=== PATIENT | male | born 1965 | race Caucasian/White ===

== ENCOUNTER 2020-06-06 09:57 | Emergency (ER) | payer OTHER ==
[~2020-06-06] VITALS: Ht 177.8 cm; Wt 83.9 kg
[2020-06-06] MEDS ORDERED: TOPROL XL25 MG PO (10:10)
[2020-06-06] MEDS ORDERED: LISINOPRIL5 MG PO (10:10)
[2020-06-06] MEDS ORDERED: FUROSEMIDE 40 M40 M1 PO (10:10)
[2020-06-06 10:24] LABS: ABSOLUTE EOSINOPHILS 0.2 thou/uL (0.0-0.7); ABSOLUTE LYMPHOCYTES 1.8 thou/uL (0.8-5.3); ABSOLUTE MONOCYTES 0.6 thou/uL (0.0-1.2); BASOPHILS 0.8 %; EOSINOPHILS 4.1 %; HEMOGLOBIN 16.8 gm/dL (14.0-18.0); LYMPHOCYTES 31.7 %; MCH 30.5 pg (26.0-34.0); MCHC 34.2 g/dL (28.0-37.0); MONOCYTES 10.7 %; MPV 8.7 fl. (7.2-11.1); NUCLEATED RBCS 0 /100WBC; PLATELET COUNT* 184 thou/uL (150-400); POLYS 52.7 %; RDW-CV 13.5 % (10.5-14.5); WBC 5.8 thou/uL (4.0-11.0)
[2020-06-06 10:30] LABS: ANION GAP 4 mmol/L (7-16); BUN 23 mg/dL (7-18); CALCIUM 8.9 mg/dL (8.5-10.1); CHLORIDE 104 mmol/L (98-107); CO2 29 mmol/L (21-32); CREATININE 1.3 mg/dL (0.6-1.3); GLUCOSE 88 mg/dL (70-99); POTASSIUM 4.2 mmol/L (3.5-5.1); SODIUM 137 mmol/L (136-145)
[2020-06-06 10:35] LABS: APTT 25.7 Seconds (25.0-31.3)
[2020-06-06 10:45] LABS: ALBUMIN 3.7 g/dL (3.4-5.0); ALKALINE PHOSPHATASE 54 U/L (46-116); CK-MB MASS < 0.5 ng/mL (<0.5-3.6); LIPASE 176 U/L (73-393); MAGNESIUM 2.4 mg/dL (1.8-2.4); NT-PRO BRAIN NAT PEPTIDE 561 pg/mL (<300); SGOT 56 U/L (15-37); SGPT 90 U/L (30-65)
[2020-06-06] MEDS ORDERED: PREDNISONE 20 M20 M1 PO (12:47)
[2020-06-06] MEDS ORDERED: ZESTRIL5 MG PO (12:47)
[2020-06-06] MEDS ORDERED: VENTOLIN HFA 1818 GM INH (12:47)
[2020-06-06 14:10] VITALS: BP 135/89
--- NOTE | 2020-06-06 16:16 | EKG ---
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[facility] : 1965 Requested By: Jerome Ng Order Number: [id number] MD: Catalino Patel Measurements Intervals [place] Rate: 69 P: 57 IN: 170 QRS: 25 QRSD: 103 T: 156 QT: 454 QTc: 487 Interpretive Statements Sinus rhythm LAE, consider biatrial enlargement Left ventricular hypertrophy Abnrm T, consider ischemia, anterolateral lds Baseline wander in lead(s) V3 Compared to ECG 02/20/2010 21:26:09 Left ventricular hypertrophy now present Possible ischemia now present Prolonged QT interval no longer present Electronically Signed On 06-06-2020 16:16:[address] COMMISSIONER by Catalino Patel [email or web address] <ELECTRONICALLY SIGNED> By: Catalino Patel MD, [facility] 06/06/20 1616 1032 Catalino Patel MD, [facility] /EPI
== END 2020-06-06 14:10 | disposition home or self-care (01) ==
LOC: M.ERS 09:57
PROVIDERS: Family Medicine
DX: R06.00 Dyspnea, unspecified (principal); R07.9 Chest pain, unspecified; Z20.828 Contact with and (suspected) exposure to other viral communicable diseases; Z79.899 Other long term (current) drug therapy

== ENCOUNTER 2020-08-01 01:53 | Observation (INO) | payer OTHER ==
[2020-08-01] VITALS (8 sets, daily range): BP systolic 110–188; BP diastolic 63–107
[~2020-08-01] VITALS: Ht 177.8 cm; Wt 69.0 kg
[~2020-08-01 01:53] MED LIST: FUROSEMIDE 40 M40 M1 PO; LISINOPRIL5 MG PO; PREDNISONE 20 M20 M1 PO; TOPROL XL25 MG PO; VENTOLIN HFA 1818 GM INH; ZESTRIL5 MG PO
[2020-08-01 02:16] LABS: ABSOLUTE EOSINOPHILS 0.2 thou/uL (0.0-0.7); ABSOLUTE LYMPHOCYTES 1.9 thou/uL (0.8-5.3); ABSOLUTE MONOCYTES 0.6 thou/uL (0.0-1.2); ABSOLUTE NEUTROPHILS 3.2 thou/uL (1.6-8.1); BASOPHILS 0.7 %; EOSINOPHILS 2.8 %; HEMATOCRIT 41.4 % (42.0-52.0); HEMOGLOBIN 14.2 gm/dL (14.0-18.0); LYMPHOCYTES 32.7 %; MCHC 34.3 g/dL (28.0-37.0); MCV 90.4 fL (80.0-100.0); MONOCYTES 10.1 %; NUCLEATED RBCS 0 /100WBC; PLATELET COUNT* 153 thou/uL (150-400); POLYS 53.7 %; RBC 4.58 mil/uL (4.50-6.00); RDW-CV 13.8 % (10.5-14.5); WBC 5.9 thou/uL (4.0-11.0)
[2020-08-01 02:23] LABS: INR 1.1; PROTIME 11.4 Seconds (9.20-11.50)
[2020-08-01 02:27] LABS: CALCIUM 8.9 mg/dL (8.5-10.1); CREATININE 1.6 mg/dL (0.6-1.3); POTASSIUM 3.9 mmol/L (3.5-5.1)
[2020-08-01 02:41] LABS: MAGNESIUM 2.3 mg/dL (1.8-2.4); TOTAL BILIRUBIN 0.7 mg/dL (<0.1-1.0); TOTAL PROTEIN 7.7 g/dL (6.4-8.2)
[2020-08-01 02:50] LABS: URINE BILIRUBIN NEGATIVE (Negative); URINE BLOOD NEGATIVE (Negative); URINE CLARITY CLEAR; URINE COLOR YELLOW; URINE GLUCOSE-RANDOM NEGATIVE (Negative); URINE KETONES NEGATIVE (Negative); URINE LEUKOCYTES-REFLEX NEGATIVE (Negative); URINE NITRITE-REFLEX NEGATIVE (Negative); URINE PROTEIN 1+ (Negative)
[2020-08-01 02:58] LABS: AMP/METHAMP Negative (Negative); BARBITURATES Negative (Negative); BENZODIAZEPINES Negative (Negative); COCAINE Negative (Negative); METHADONE Negative (Negative); OPIATES Negative (Negative); PCP Negative (Negative); THC Negative (Negative)
[2020-08-01] MEDS ORDERED: LASIX 40 MG TAB40 M2 PO (08:37)
--- NOTE | 2020-08-01 11:08 | EKG ---
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 : 1965 Requested By: Erika Alvarenga Order Number: [id number] MD: Catalino Patel Measurements Intervals [place] Rate: 59 P: 64 MT: 190 QRS: 15 QRSD: 119 T: 66 QT: 454 QTc: 450 Interpretive Statements Sinus rhythm Probable LVH with secondary repol abnrm Compared to ECG 06/06/2020 10:32:58 Possible ischemia no longer present Electronically Signed On 08-01-2020 11:08:15 QA SPECIALIST by Catalino Patel [email or web address] <ELECTRONICALLY SIGNED> By: Catalino Patel MD, FAC 08/01/20 1108 0156 0156 Catalino Patel MD, [facility] /EPI
--- NOTE | 2020-08-01 11:09 | EKG ---
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 : 1965 Requested By: rEika Alvarenga Order Number: [id number] MD: Catalino Patel Measurements Intervals [place] Rate: 57 P: 57 [place]: 169 QRS: 20 QRSD: 116 T: 59 QT: 531 QTc: 517 Interpretive Statements Sinus rhythm Nonspecific intraventricular conduction delay Minimal ST depression, anterolateral leads Compared to ECG 08/01/2020 01:56:48 no change Electronically Signed On 08-01-2020 11:09:08 [employer] by Catalino Patel [email or web address] <ELECTRONICALLY SIGNED> By: Catalino Patel MD, [facility] 08/01/20 1109 0315 0315 Catalino Patel MD, [facility] /EPI
[2020-08-01 16:03] LABS: CHOLESTEROL 136 mg/dL (<200); HDL CHOLESTEROL 36 mg/dL (>40); LDL CHOLESTEROL 94 mg/dL (<100); SERUM ASSESSMENT CLEAR; TC:HDL 3.8 Ratio (Not establshd); TRIGLYCERIDE 33 mg/dL (<150); VLDL 7 mg/dL (<40)
[2020-08-01] MEDS ORDERED: SPIRONOLACTONE25 MG PO (16:45)
--- NOTE | 2020-08-01 16:52 | CARDNUC ---
[place] [address] CARDIAC NUCLEAR IMAGING REPORT Name: ERLINDA RAMIREZ Yordy Room: [address]R.#: [id number] Admission: 08/01/20 Attend Phys: Tapan Dos Santos, Discharge: Date of : 65 Date of Service: 08/01/20 1652 Report #: [id number] THIS REPORT FOR: cc: Ludy Groves MD [facility] Ludy Groves MD [facility] Pk Cisse MD [facility] ~ APPROVED REPORT Imaging Protocol: Stress Tc-99m/Rest Tc-99m 1 day Study performed: 08/01/2020 08:31:00 Indication: Chest pain, Dyspnea Patient Location: In-Patient Room #: 210 Stress Tech: Margarita Sainz Stress Nurse: Jennifer Ross RN Ht: 5 ft 10 in Wt: 181 lbs BSA: 2.00 m2 BMI: 25.96 Medical History Medical History: Cardiomyopathy Medications: amiodarone, lisinopril, spironalactone Allergies: No known drug allergies Cardiac Risk Factors: Age, HTN Exercise History: Sedentary Resting Data Rest SPECT myocardial perfusion imaging was performed in supine position 30 minutes following the intravenous injection of 10.2 mCi of Tc-99m Sestamibi. Time of rest injection: 13:00 The images were gated to evaluate regional wall motion and calculate left ventricular ejection fraction. Administration Route: IV Administration Site: Right Hand Pharmacologic Stress Pharmacologic stress test was performed by injecting Regadenoson 0.4 mg IV push over 10-15 seconds immediately followed by the intravenous injection of 33.2 mCi of Tc-99m Sestamibi. Time of stress injection: 14:30 Administration Route: IV Administration Site: [place] [address] CARDIAC NUCLEAR IMAGING REPORT Name: ERLINDA RAMIREZ Room: [address]#: [id number] Admission: 08/01/20 Attend Phys: Tapan Dos Santos, Discharge: Date of : 65 Date of Service: 08/01/20 1652 Report #: [id number] Heart Rate at time of stress injection: 75 bpm. Gated Stress SPECT was performed 40 minutes after stress injection. The images were gated to evaluate regional wall motion and calculate left ventricular ejection fraction. Prone imaging was performed. Stress Test Details Stress Test: Pharmacologic stress testing performed using 0.4 mg of regadenoson per 5 mL given IV over 10 seconds. Reason for pharmacologic stress test: physical limitation. HR Max Heart Rate (APMHR): 165 bpm Resting HR: 56 bpm Target HR (85% APMHR): 140 bpm Max HR Achieved: 75 bpm % of APMHR: 45 Recovery HR: 70 bpm BP Resting BP: 146/101 mmHg Max BP: 162/96 mmHg Recovery BP: 146/93 mmHg ECG Resting ECG: Sinus Rhythm, LVH with repolarization changes Stress ECG: Sinus Rhythm, LVH with repolarization changes ST Change: None Arrhythmia: None Recovery ECG: Sinus Rhythm, LVH with repolarization changes Recovery ST Change: None Recovery Arrhythmia: None Clinical Reason for Termination: Completed protocol The patient tolerated Lexiscan infusion without significant cardiac symptoms. Nurse Comments pt walks with cane. unable to walk on treadmill Stress ECG Conclusion Baseline twelve-lead EKG shows sinus rhythm with left ventricular hypertrophy and repolarization abnormalities. EKGs obtained during and post Lexiscan infusion show sinus rhythm [place] [address] CARDIAC NUCLEAR IMAGING REPORT Name: ERLINDA RAMIREZ Room: [address]#: [id number] Admission: 08/01/20 Attend Phys: Tapan Dos Santos, Discharge: Date of : 65 Date of Service: 08/01/20 1652 Report #: [id number] hypertrophy and repolarization abnormalities. There were no significant ST segment changes when compared to baseline. There were no stress-induced arrhythmias. Study Quality Study: Good Artifact: No artifact Study Data At rest, the left ventricular ejection fraction was 38%.. Post stress, the left ventricular ejection was 38%.. TID = 0.86. Perfusion Perfusion images show no fixed or reversible defects to suggest infarct or ischemia. Wall Motion There is global hypokinesis. Nuclear Conclusion ECG Findings: non-diagnostic Clinical Findings: negative for ischemia Nuclear Findings: negative for ischemia Exercise Capacity: not assessed Left Ventricular Function: abnormal Perfusion images show no defect to suggest infarct or ischemia. The left ventricle appears dilated. There is global hypokinesis. Findings consistent with nonischemic cardiomyopathy. This is a moderate risk study due to left ventricular systolic dysfunction. <Conclusion> Baseline twelve-lead EKG shows sinus rhythm with left ventricular hypertrophy and repolarization abnormalities. EKGs obtained during and post Lexiscan infusion show sinus rhythm with left ventricular hypertrophy and repolarization abnormalities. There were no significant ST segment changes when compared to baseline. There were no stress-induced arrhythmias. <ELECTRONICALLY SIGNED> By: Pk Cisse MD, FACC 08/01/201651 51 51 Pk Cisse MD, FACC /INF
[2020-08-02] VITALS: BP 111/84
== END 2020-08-01 18:00 | disposition home or self-care (01) ==
LOC: M.ERS 01:53 → M.TBA-ER 02:53 → M.2W 03:16
PROVIDERS: Emergency Medicine; ADMIT Internal Medicine; ATTEND Internal Medicine
DX: I20.0 Unstable angina (principal); R07.89 Other chest pain; I48.0 Paroxysmal atrial fibrillation; I11.0 Hypertensive heart disease with heart failure; I50.22 Chronic systolic (congestive) heart failure; Z20.822 Contact with and (suspected) exposure to COVID-19; F15.90 Other stimulant use, unspecified, uncomplicated; E87.6 Hypokalemia; I42.9 Cardiomyopathy, unspecified; Z79.899 Other long term (current) drug therapy

== ENCOUNTER 2020-10-12 00:49 | Emergency (ER) | payer OTHER ==
[~2020-10-12] VITALS: Ht 177.8 cm; Wt 81.7 kg
[~2020-10-12 00:49] MED LIST changes: +LASIX 40 MG TAB40 M2 PO; +SPIRONOLACTONE25 MG PO
[2020-10-12] MEDS ORDERED: CARVEDILOL6.25 M1 PO (00:59)
[2020-10-12] MEDS ORDERED: PACERONE200 MG PO (00:59)
[2020-10-12] MEDS ORDERED: SPIRONOLACTONE25 MG PO (01:00)
[2020-10-12] MEDS ORDERED: ZESTRIL5 MG PO (01:00)
[2020-10-12 01:18] LABS: HEMATOCRIT 37.5 % (42.0-52.0); HEMOGLOBIN 12.9 gm/dL (14.0-18.0); MCH 32.3 pg (26.0-34.0); MCHC 34.3 g/dL (28.0-37.0); MPV 9.1 fl. (7.2-11.1); NUCLEATED RBCS 0 /100WBC; PLATELET COUNT* 156 thou/uL (150-400); RBC 3.99 mil/uL (4.50-6.00); RDW-CV 13.4 % (10.5-14.5); WBC 5.1 thou/uL (4.0-11.0)
[2020-10-12 02:02] LABS: CALCIUM 8.6 mg/dL (8.5-10.1); CREATININE 1.2 mg/dL (0.6-1.3); POTASSIUM 3.7 mmol/L (3.5-5.1)
[2020-10-12 02:13] LABS: ALBUMIN 3.7 g/dL (3.4-5.0); MAGNESIUM 2.2 mg/dL (1.8-2.4); TOTAL BILIRUBIN 0.7 mg/dL (<0.1-1.0); TOTAL PROTEIN 7.7 g/dL (6.4-8.2)
[2020-10-12 02:30] VITALS: BP 100/67
[2020-10-12 05:19] LABS: ABSOLUTE BASOPHILS 0.1 thou/uL (0.0-0.2); ABSOLUTE EOSINOPHILS 0.6 thou/uL (0.0-0.7); ABSOLUTE LYMPHOCYTES 1.8 thou/uL (0.8-5.3); ABSOLUTE MONOCYTES 0.2 thou/uL (0.0-1.2); ABSOLUTE NEUTROPHILS 2.4 thou/uL (1.6-8.1); ATYPICAL LYMPHS 1 %; PLATELET ESTIMATE ADEQUATE
--- NOTE | 2020-10-14 10:14 | EKG ---
[place] [address] ELECTROCARDIOGRAM REPORT Name: ERLINDA RAMIREZ Room: [facility]#: [id number] Admission: 10/12/20 Attend Phys: Discharge: 10/12/20 Date of : 65 Date of Service: 10/12/20 0050 Report #: [id number] THIS REPORT FOR: //name// 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: [place] : 1965 Requested By: Erika Alvarenga Order Number: [id number] Reading MD: Catalino Patel Measurements Intervals [place] Rate: 50 P: 70 RI: 207 QRS: 22 QRSD: 115 T: 42 QT: 484 QTc: 442 Interpretive Statements Sinus bradycardia nonspecific st segment changes Borderline prolonged RI interval Nonspecific intraventricular conduction delay Compared to ECG 08/01/2020 03:15:46 no change Electronically Signed On 10-14-2020 10:14:19 CDT by Catalino Patel [email or web address] <ELECTRONICALLY SIGNED> By: Catalino Patel MD, [facility] 10/14/20 1014 0050 0050 Catalino Patel MD, [facility] /EPI
== END 2020-10-12 02:30 | disposition home or self-care (01) ==
LOC: M.ERS 00:49
PROVIDERS: Emergency Medicine
DX: R06.00 Dyspnea, unspecified (principal); R01.1 Cardiac murmur, unspecified; R07.89 Other chest pain; I11.0 Hypertensive heart disease with heart failure; I50.22 Chronic systolic (congestive) heart failure; I48.91 Unspecified atrial fibrillation